=== PATIENT | female | born 1965 | race Caucasian/White ===

== ENCOUNTER → 2020-04-20 | Outpatient (CLI) | payer OTHER | LOC: M.LAB 15:08 | PROVIDERS: ATTEND Orthopaedic Surgery | DX: Z01.812 Encounter for preprocedural laboratory examination (principal); Z20.822 Contact with and (suspected) exposure to COVID-19; M23.003 Cystic meniscus, unspecified medial meniscus, right knee ==

== ENCOUNTER → 2020-05-05 | Outpatient (CLI) | payer OTHER | LOC: M.LAB 10:41 | PROVIDERS: ATTEND Orthopaedic Surgery | DX: Z98.890 Other specified postprocedural states (principal) ==